=== PATIENT | male | born 1965 | race Two or more races ===

== ENCOUNTER 2019-10-01 08:51 | Day surgery (SDC) | payer OTHER | END 2019-10-01 12:10 | disposition home or self-care (01) | LOC: AMB-ENDOS 08:51 → ADM 14:45 | DX: K62.89 Other specified diseases of anus and rectum (principal); K57.30 Diverticulosis of large intestine without perforation or abscess without bleeding; Z12.11 Encounter for screening for malignant neoplasm of colon ==